=== PATIENT | male | born 1955 | race Caucasian/White ===

== ENCOUNTER 2017-06-21 06:08 | Day surgery (SDC) | payer BC ==
[~2017-06-21] VITALS: Ht 182.9 cm; Wt 86.2 kg
[2017-06-21] MEDS ORDERED: HEPARIN 1,000 UNITS/ML, 10ML ONE (06:44)
[2017-06-21] MEDS ORDERED: BUPIVACAINE/PF-EPI 0.5% 1:200K ONE (06:45)
[2017-06-21] MEDS ORDERED: SODIUM CHLORIDE 0.9% 1,000 ML IV SCH (06:49)
[2017-06-21 06:54] VITALS: BP 97/59
[2017-06-21] MEDS ORDERED: HEPARIN 5,000 UNITS/ML, 1ML ONE (07:01)
[2017-06-21 07:32] LABS: BASOPHILS # (AUTO) 0.04 x10^3/uL (0-0.1); BASOPHILS % (AUTO) 1 % (0-1); EOSINOPHILS # (AUTO) 0.24 x10^3/uL (0-0.4); EOSINOPHILS % (AUTO) 5 % (1-7); LYMPHOCYTES # (AUTO) 1.81 x10^3/uL (1-3.4); LYMPHOCYTES % (AUTO) 36 % (22-44); MD NO; MEAN CORPUSCULAR HEMOGLOBIN 32.3 pg (27.5-34.5); MEAN CORPUSCULAR HGB CONC 33.3 g/dL (33.2-36.2); MEAN CORPUSCULAR VOLUME 96.9 fL (81-97); MONOCYTES # (AUTO) 0.47 x10^3/uL (0.2-0.8); MONOCYTES % (AUTO) 9 % (2-9); NEUTROPHILS % (AUTO) 49 % (42-75); PLATELET COUNT 194 x10^3/uL (130-400); RED CELL DISTRIBUTION WIDTH 13.5 % (9.4-14.8)
[2017-06-21] MEDS ORDERED: FENTANYL PF 100 MCG/2ML ONE (07:33)
[2017-06-21] MEDS ORDERED: MIDAZOLAM 1 MG/ML, 2ML ONE (07:33)
[2017-06-21] MEDS ORDERED: DEXAMETHASONE 4 MG/ML, 1ML ONE (07:34)
[2017-06-21] MEDS ORDERED: CEFAZOLIN 1,000 MG ONE ×2 (07:34)
[2017-06-21] MEDS ORDERED: PHENYLEPHRINE 10 MG/ML ONE (07:34)
[2017-06-21] MEDS ORDERED: EPHEDRINE 50 MG/ML, 1ML ONE (07:34)
[2017-06-21] MEDS ORDERED: ROCURONIUM 10MG/ML,5ML ONE (07:34)
[2017-06-21] MEDS ORDERED: PROPOFOL 10 MG/ML, 20ML ONE (07:34)
[2017-06-21] MEDS ORDERED: METOCLOPRAMIDE 5 MG/ML, 2ML ONE (07:34)
[2017-06-21 07:40] LABS: INTERNATIONAL NORMALIZED RATIO 1.05 (0.93-1.1); PROTHROMBIN TIME 10.9 Seconds (9.6-11.5)
[2017-06-21 07:43] LABS: ALANINE AMINOTRANSFERASE 23 U/L (12-78); ALBUMIN 2.2 g/dL (3.4-5.0); ANION GAP 7 mmol/L (5-15); CALCIUM 7.1 mg/dL (8.5-10.1); CHLORIDE 109 mmol/L (98-107); CREATININE 3.49 mg/dL (0.7-1.3)
[2017-06-21 07:45] LABS: ALKALINE PHOSPHATASE 144 U/L (45-117); BILIRUBIN,TOTAL 0.8 mg/dL (0.2-1.0)
[2017-06-21] MEDS ORDERED: CLINDAMYCIN 150 MG/ML, 6ML ONE (07:46)
[2017-06-21] MEDS ORDERED: LACTATED RINGERS 1,000 ML IV SCH (10:14)
[2017-06-21] MEDS ORDERED: HYDROmorphone 2 MG/ML, 1ML IV PRN (10:30)
[2017-06-21] MEDS ORDERED: MEPERIDINE/PF 25MG/0.5ML IVPush PRN (10:30)
[2017-06-21] MEDS ORDERED: OXYcodone/APAP 5/325MG TABLET PO PRN (10:30)
[2017-06-21] MEDS ORDERED: LABETALOL 5MG/ML, 20ML IV PRN (10:30)
[2017-06-21] MEDS ORDERED: morphine SULFATE 10 MG/ML, 1ML IVPush PRN (10:30)
[2017-06-21] MEDS ORDERED: ONDANSETRON 2MG/ML, 2ML IVPush PRN (10:30)
[2017-06-21] MEDS ORDERED: MIDAZOLAM 1 MG/ML, 2ML IV PRN (10:30)
[2017-06-21] MEDS ORDERED: OXYcodone 5 MG/5 ML ORAL.SOL UDC PO PRN (10:30)
[2017-06-21] MEDS ORDERED: FENTANYL PF 100 MCG/2ML IV PRN (10:30)
[2017-06-21] MEDS ORDERED: OXYcodone 5 MG/5 ML ORAL.SOL UDC ONE (10:31)
== END 2017-06-21 13:00 ==
LOC: OUT 06:08
DX: T82.49XA Other complication of vascular dialysis catheter, initial encounter (principal); E11.22 Type 2 diabetes mellitus with diabetic chronic kidney disease; N18.6 End stage renal disease; Y83.8 Other surgical procedures as the cause of abnormal reaction of the patient, or of later complication, without mention of misadventure at the time of the procedure; Y92.89 Other specified places as the place of occurrence of the external cause; Z89.511 Acquired absence of right leg below knee; Z98.890 Other specified postprocedural states; Z88.1 Allergy status to other antibiotic agents; Z88.0 Allergy status to penicillin; Z88.8 Allergy status to other drugs, medicaments and biological substances
CPT/HCPCS: 36415; 49325; 49326; 80053; 82962; 85025; 85610; 93005; J1100; J1644; J2250; J2370; J2704; J2765; J3010; J7030; J0690